=== PATIENT | male | born 1955 ===

== ENCOUNTER 2019-03-18 19:30 | Outpatient (CLI) | payer BC | END 2019-03-18 19:31 | disposition home or self-care (01) | LOC: SLEEPLAB 19:30 | PROVIDERS: ATTEND Internal Medicine | DX: G47.33 Obstructive sleep apnea (adult) (pediatric) (principal); R53.83 Other fatigue; R06.83 Snoring; I10 Essential (primary) hypertension | CPT/HCPCS: 95811 ==